=== PATIENT | male | born 1995 | race Caucasian/White ===

== ENCOUNTER 2022-07-25 14:56 | Emergency (ER) | payer MEDICAID ==
[~2022-07-25] VITALS: Ht 177.8 cm; Wt 131.5 kg
[2022-07-25 15:00] VITALS: BP_SYST 140
--- NOTE | 2022-07-25 15:00 | NUR ---
Patient triaged and placed in waiting room. VSS and patient appears in no acute distress at this time. Accompanied by SELF, awaiting available bed, and MD notified of need for MSE.
--- NOTE | 2022-07-25 15:20 | NUR ---
PT STATES HE HAS BEEN SEEN IN ER TODAY FOR FERAL CAT BITE TO YVETTE HANDS AND LEFT THAT ER BECAUSE HE WANTS TO BE TESTED FOR RABIES.
--- NOTE | 2022-07-25 16:01 | NUR ---
DR BOGGS OUT TO TRIAGE ROOM FOR EVALUATION
--- NOTE | 2022-07-25 16:20 | NUR ---
Patient given written and verbal discharge instructions and verbalizes understanding. ER MD discussed with patient the results and treatment provided. Patient in stable condition. ID arm band removed. Rx of NONE given. Patient educated on pain management and to follow up with PMD. Pain Scale 0/10. Opportunity for questions provided and answered. Medication side effect fact sheet provided.
== END 2022-07-25 16:20 | disposition home or self-care (01) ==
LOC: SED 14:56
DX: S61.432A Puncture wound without foreign body of left hand, initial encounter (principal); S61.431A Puncture wound without foreign body of right hand, initial encounter; Z79.899 Other long term (current) drug therapy; W55.01XA Bitten by cat, initial encounter; Y93.89 Activity, other specified; Y92.89 Other specified places as the place of occurrence of the external cause; Y99.8 Other external cause status
CPT/HCPCS: 99281